=== PATIENT | female | born 1985 | race African-American/Black ===

== ENCOUNTER 2016-10-21 19:26 | Emergency (ER) | payer OTHER ==
[~2016-10-21] VITALS: Ht 157.5 cm; Wt 84.1 kg
[~2016-10-21 19:26] MED LIST: ALEVE220 M2 PO; FIORICET,ESG1 TABLET PO; FLONASE16 G1 BOTH NARES; MOTRIN800 MG PO; MUCUS RELIEF600 M1 PO; NAPROSYN500 MG PO; TESSALON PERLE100 MG PO; [UNRECOGNIZED DRUG - REMARK]
[2016-10-21 19:28] VITALS: BP 123/77
== END 2016-10-21 23:08 | disposition left against medical advice (07) ==
LOC: EME 19:26
DX: R21 Rash and other nonspecific skin eruption (principal); Z53.21 Procedure and treatment not carried out due to patient leaving prior to being seen by health care provider

== ENCOUNTER 2016-10-26 19:09 | Emergency (ER) | payer OTHER ==
[~2016-10-26] VITALS: Ht 157.5 cm; Wt 80.4 kg
[2016-10-26 20:20] VITALS: BP 128/89
== END 2016-10-26 20:20 | disposition home or self-care (01) ==
LOC: EME 19:09
DX: B35.4 Tinea corporis (principal)
CPT/HCPCS: 99281; 99283

== ENCOUNTER 2016-12-26 12:52 | Emergency (ER) | payer OTHER ==
[~2016-12-26] VITALS: Ht 157.5 cm; Wt 85.2 kg
[2016-12-26 13:31] LABS: ADD MIUA? YES; BILIRUBIN NEGATIVE; BLOOD NEGATIVE; COLOR YELLOW ((YELLOW)); GLUCOSE (STRIP) NEGATIVE; KETONES NEGATIVE; LEUKOCYTES NEGATIVE; NITRITE NEGATIVE; PROTEIN (STRIP) NEGATIVE; SPECIFIC GRAVITY 1.008 (1.000-1.030); UROBILINOGEN 0.2 MG/DL (0.2-1.0)
[2016-12-26 13:38] LABS: BACTERIA NONE SEEN /HPF; EPITHELIAL CELLS RARE /HPF; MUCUS NONE SEEN /LPF; RED BLOOD CELLS 0-5 /HPF (0-5); WHITE BLOOD CELLS 0-5 /HPF (0-5)
[2016-12-26 13:45] LABS: HEMATOCRIT 40.5 % (36.0-46.0); MCH 31.6 PG (29.0-34.0); MCHC 33.6 G/DL (30.0-36.0); MCV 94.2 FL (83-99); MEAN PLAT.VOLUME 10.6 uM^3 (9.5-12.4); PLATELET COUNT 260 K/uL (156-360); RBC DIS.WIDTH-CV 12.5 % (11.8-14.6); RBC DIS.WIDTH-SD 43.3 % (39-53); WHITE BLOOD COUNT 5.9 K/uL (4.1-10.2)
[2016-12-26 13:58] LABS: CHLORIDE 101 mEq/L (99-109); POTASSIUM 3.9 mEq/L (3.7-5.4); SODIUM 138 mEq/L (136-147)
[2016-12-26 14:00] LABS: GLUCOSE 74 mg/dL (70-99)
[2016-12-26 14:01] LABS: ANION GAP 13 MEQ/L (2-14)
[2016-12-26 14:02] LABS: TOTAL BILIRUBIN 0.3 mg/dL (0.0-1.0)
[2016-12-26 14:03] LABS: ALKALINE PHOSPHATASE 73 IU/L (3-129)
[2016-12-26 14:04] LABS: GFR ESTIMATE (CALCULATED) > 59 mL/min/
[2016-12-26 14:05] LABS: UREA NITROGEN (BUN) 7 mg/dL (9-23)
[2016-12-26 14:07] LABS: LIPASE 17 U/L (1.0-51.0)
[2016-12-26 14:14] LABS: QUANTITATIVE HCG < 4.0 MIU/ML
[2016-12-26] MEDS ORDERED: OMEPRAZOLE40 M1 PO (14:25)
[2016-12-26] MEDS ORDERED: CITRATE OF MAG296 ML PO (14:25)
[2016-12-26 14:56] VITALS: BP 128/81
== END 2016-12-26 14:56 | disposition home or self-care (01) ==
LOC: EME 12:52 → EXP 12:52
PROVIDERS: Physician Assistant
DX: K59.00 Constipation, unspecified (principal); R10.13 Epigastric pain; F17.200 Nicotine dependence, unspecified, uncomplicated
CPT/HCPCS: 74022; 76705; 80053; 81003; 83690; 84702; 85027; 99281; 99282